=== PATIENT | male | born 2000 | race Two or more races ===

== ENCOUNTER 2023-01-08 16:55 | Emergency (ER) | payer BC, OTHER ==
[~2023-01-08] VITALS: Ht 177.8 cm; Wt 127.0 kg
[2023-01-08 17:23] VITALS: BP 119/86; PULSE 107; RESP 20; TEMP 98; O2SAT 99
[2023-01-08] MEDS ORDERED: IBUPROFEN 800 MG TAB PO ONE (17:55)
[2023-01-08] MEDS ORDERED: CYCL-711 PO (18:46)
[2023-01-08] MEDS ORDERED: IBUP-2218 PO (18:46)
[2023-01-08] MEDS ORDERED: LID5T TP (18:46)
== END 2023-01-08 19:12 | disposition home or self-care (01) ==
LOC: MED 16:55
DX: S16.1XXA Strain of muscle, fascia and tendon at neck level, initial encounter (principal); S39.012A Strain of muscle, fascia and tendon of lower back, initial encounter; R03.0 Elevated blood-pressure reading, without diagnosis of hypertension; V49.88XA Car occupant (driver) (passenger) injured in other specified transport accidents, initial encounter; Y93.89 Activity, other specified; Y92.89 Other specified places as the place of occurrence of the external cause; Y99.8 Other external cause status
CPT/HCPCS: 99282

== ENCOUNTER 2023-01-11 21:46 | Emergency (ER) | payer OTHER ==
[~2023-01-11] VITALS: Ht 175.3 cm; Wt 127.0 kg
[~2023-01-11 21:46] MED LIST: CYCL-711 PO; IBUP-2218 PO; LID5T TP
[2023-01-11 22:04] VITALS: BP 153/76; PULSE 87; RESP 16; TEMP 97.2; O2SAT 100
[2023-01-12] MEDS ORDERED: NAPR-54 PO (03:32)
[2023-01-12 03:45] VITALS: BP 122/74; PULSE 77; RESP 16; TEMP 97.2; O2SAT 100
== END 2023-01-12 03:45 | disposition home or self-care (01) ==
LOC: MED 21:46
DX: R51.9 Headache, unspecified (principal); R03.0 Elevated blood-pressure reading, without diagnosis of hypertension; Z79.899 Other long term (current) drug therapy; V89.2XXA Person injured in unspecified motor-vehicle accident, traffic, initial encounter; Y93.89 Activity, other specified; Y92.89 Other specified places as the place of occurrence of the external cause; Y99.8 Other external cause status
CPT/HCPCS: 70450; 99284